=== PATIENT | female | born 1980 | race Caucasian/White ===

== ENCOUNTER → 2023-08-05 00:19 | Outpatient (CLI) | payer BC, SELFPAY ==
--- NOTE | 2023-08-05 08:09 | DI.MAMMO_ITS ---
Exam(s) MAMMO SCREENING EXAM: MAMMO SCREENING CLINICAL HISTORY: Z12.31 Encounter for screening mammogram for malig neop of breast. TECHNIQUE: Bilateral full field digital CC and MLO mammographic images were obtained with 3D tomosyn thesis and utilizing computer aided detection (CAD). COMPARISON: None. This is a baseline mammogram on this 43-year-old. FINDINGS: The fibroglandular tissue pattern is moderately dense, this somewhat decreasing the sensitivity of th e mammogram for finding hidden underlying lesions. The multiple benign-appearing microcalcifications. There are no obvious spiculated masses nor malignant appearing microcalcification groups. There is no significant architectural distortion nor skin thickening-retraction. IMPRESSION: Benign findings. No radiographic evidence of malignancy. BI-RADS Category 2 - Benign Findings Breast Density - Category C - Heterogeneously dense Breast density Category C or D implies that the patient has dense breast tissue. Dense breast tissue can make it harder to find cancer on a mammogram. Dense breast tissue is also associated with an incr eased risk of breast cancer. This information about the result of the mammogram report was provided to the patient to raise their awareness. Use this report when you speak with the patient about their risks for breast cancer, which includes their family history. At that time, you may recommend additional screening tests (Ultrasoun d or MRI) as these tests may add significant information. A negative radiographic report should not delay biopsy if a dominant or clinically suspicious mass is present. Up to ten percent of cancers are not identified on mammography. A negative report may reinforce clinical impression. Adenosis and dense breasts may obscure an underlying neoplasm. False positive reports average 6 to 10%. Patient will receive a letter notifying them of these results.
== END ==
PROVIDERS: PCP Physician Assistant Medical; Visit Provider Physician Assistant Medical
DX: Z12.31 Encounter for screening mammogram for malignant neoplasm of breast (principal); R92.323 Mammographic fibroglandular density, bilateral breasts
CPT/HCPCS: 77063; 77067

== ENCOUNTER 2023-11-25 02:30 | Outpatient (CLI) | payer BC, SELFPAY ==
--- OUTSIDE RECORDS SUMMARY | 2023-11-25 02:50 | XMS_ITS | Data Portability ---
Author Organization [place] - [facility] [place] [address] Care Team Providers Care Production Or Plant Engineer Name Role Phone [facility] BRYANT Dentist Assessment No assessment recorded. Plan of Treatment Reminders Order Date Submit Date Provider Last Modified By Organization Details Last Modified Time Details Appointments Annual Wellness Exam 40 2023 08:00A Linnea GONG Not available Not available Not available Lab influenza virus A + B + SARS-CoV- 2 (COVID19) Ag panel, rapid IA, upper respirato ry specimen 2023 024 [email or web address] [facility], [address] [place] [address], [address], [place], [address], 04/27/2023 12:50:55 HbA1c (hemoglob in A1c), blood 2023 024 [email or web address] [facility] ([facility]), [address] [place] [address] [place], [address], 11/18/2023 11:33:53 lipid panel, serum 2023 024 [email or web address] [facility] ([facility]), [address] [place] [address] [place], [address], 11/18/2023 11:33:53 CMP, serum or plasma 2023 024 [email or web address] [facility] ([facility]), [address] [place] [address] [place], [address], 11/18/2023 11:33:53 Referral None recorded. Procedures None recorded. Surgeries None recorded. Imaging MAMMO, screening , bilateral 2023 024 [facility] (Radiology), [address] [place] [address] [place], [address], 08/12/2023 15:32:42 Medication Orders Ozempic 1 mg/dose (4 mg/3 mL) subcutane ous pen injector 2023 024 [email or web address] [facility], [address], [place], [address], 08/04/2023 10:04:14 Patient TargetsNo targets recorded. Patient InstructionsNo instructions recorded. Reason for Referral None Reported. Results Created Date Observation Date Name Description Value Unit Range Abnormal Flag LastModifiedBy Organization Detail LastModifiedTime 04/27/19 24 04/27/2023 influ kris virus A + B + SARS- CoV-2 (COVI D19) Ag panel , rapid IA, upper respi rator y speci men Influenza A negati ve Not Available [address] [place] [address], [address], 04/27/2023 12:28:25 04/27/19 24 04/27/2023 influ kris virus A + B + SARS- CoV-2 (COVI D19) Ag panel , rapid IA, upper respi rator y speci men Influenza B negati ve Not Available [address] [place] [address], [address], 04/27/2023 12:28:25 04/27/19 24 04/27/2023 influ kris virus A + B + SARS- CoV-2 (COVI D19) Ag panel , rapid IA, upper respi rator y speci men SARS-COV-2 positi ve Not Available [address] [place] [address], [address], 04/27/2023 12:28:25 04/27/19 24 04/27/2023 influ kris virus A + B + SARS- CoV-2 (COVI D19) Ag panel , rapid IA, upper respi rator y speci men Sample sent for PCR confirmation No Not Available [address], [place], [address], 04/27/2023 12:28:25 08/05/19 24 08/05/2023 MAMMO , scree anali, bilat eral Patien t Name: Shilpi Howard Unit #: [id number] Loc: DI Orderi ng Provid er: Ginny reinoso,Sabrina GIBBONS Accoun t #: [id number] Status : REG CLI Primar y Care Provid er: Ginny reinoso,Sabrina GIBBONS Date of Exa m: Sex: F Admiss ion Date: : 1980 Age: 43 Exam(s ) MG MAMMO SCREEN ING EXAM: MG MAMMO SCREEN ING CLINIC AL HISTOR Y: Z12.[address] for screen ing mammog lalita for malig neop of breast . TECHNI QUE: Bilate ral full field digita l CC and MLO mammog raphic images were obtain ed with 3D tomosy nthesi s and utiliz ing comput er aided detect ion (CAD). COMPAR DIOMEDES: None. This is a baseli ne mammog lalita on this 43-yea r-old. FINDIN GS: The fibrog landul ar tissue patter n is modera tely dense, this somewh at decrea sing the sensit ivity of the mammog lalita for findin g hidden underl cristobal lesion s. The multip le benign -appea ring microc alcifi cation s. There are no obviou s spicul ated masses nor malign ant appear ing microc alcifi cation groups . There is no signif icant harris ectura l distor tion nor skin thicke anali-r etract ion. IMPRES LACIE: Benign findin gs. No radiog raphic eviden ce of malign earnestine. BI-RAD S Catego ry 2 - Benign Findin gs Breast Densit y - Catego ry C - Hetero geneou sly dense Breast densit y Catego ry C or D implie s that the patien t has dense breast tissue . Dense breast tissue can make it harder to find cancer on a mammog lalita. Dense breast tissue is also associ ated with an increa sed risk of breast cancer . This inform ation about the result of the mammog lalita report was provid ed to the patien t to raise their awaren ess. Use this report when you speak with the patien t about their risks for breast cancer , which includ es their family histor y. At that time, you may recomm end additi onal screen ing tests (Ultra sound or MRI) as these tests may add signif icant inform ation. A negati ve radiog raphic report should not delay biopsy if a domina nt or clinic ally suspic ious mass is presen t. Up to ten percen t of cancer s are not identi fied on mammog man. A negati ve report may reinfo rce clinic al impres lacie. Adenos is and dense breast s may obscur e an underl rcistobal neopla sm. False positi ve report s averag e 6 to 10%. Patien t will receiv e a letter notify ing them of these result sEsdras Manzanares d By: Ginny reinoso,Sabrina GIBBONS CC: ------ ------ ------ ------ ------ ------ ------ ------ ------ ------ ------ ------ - Dictat ed By: Jas Paige M.D. 820 Transc ribed By: Grecia ALCAZAR,Jacklyn lopez 820 This is privil eged, confid ential inform ation intend ed only for the provid er named. Any use or distri bution by any person other than this provid er is strict ly prohib ited. If you receiv e this report in error, please notify us immedlucy peña at and return the origin al report to us at the addres s above. Thank- you. [facility] [address], [place], [address] 08/12/2023 15:32:42 10/29/19 24 08/05/2023 MAMMO , lori briones, michael Wing t Name: Shilpi Howard Unit #: [id number] Loc: DI Orderi ng Provid er: Sabrina Gross rn Accoun t #: [id number] Status : REG CLI Primar y Care Provid er: Sabrina Gross rn Date of Exa m: Sex: F Admiss ion Date: : 1980 Age: 43 Addend a: Exam(s ) MG MAMMO SCREEN ING ADDEND UM: The images were review ed. I agree with the findin gs and impres lacie below. Dictat ed By: Za Gaspar [id number] Za Gaspar 1512 Transc ribed By: Jacques Tate [id number] Exam(s ) MG MAMMO SCREEN ING EXAM: MAMMO SCREEN ING CLINIC AL HISTOR Y: Z12.[address] for screen ing mammog lalita for malig neop of breast . TECHNI QUE: Bilate ral full field digita l CC and MLO mammog raphic images were obtain ed with 3D tomosy nthesi s and utiliz ing comput er aided detect ion (CAD). COMPAR DIOMEDES: None. This is a baseli ne mammog lalita on this 43-yea r-old. FINDIN GS: The fibrog landul ar tissue patter n is modera tely dense, this somewh at decrea sing the sensit ivity of the mammog lalita for findin g hidden underl cristobal lesion s. The multip le benign -appea ring microc alcifi cation s. There are no obviou s spicul ated masses nor malign ant appear ing microc alcifi cation groups . There is no signif icant harris ectura l distor tion nor skin thicke anali-r etract ion. IMPRES LACIE: Benign findin gs. No radiog raphic eviden ce of malign earnestine. BI-RAD S Catego ry 2 - Benign Findin gs Breast Densit y - Catego ry C - Hetero geneou sly dense Breast densit y Catego ry C or D implie s that the patien t has dense breast tissue . Dense breast tissue can make it harder to find cancer on a mammog lalita. Dense breast tissue is also associ ated with an increa sed risk of breast cancer . This inform ation about the result of the mammog lalita report was provid ed to the patien t to raise their awaren ess. Use this report when you speak with the patien t about their risks for breast cancer , which includ es their family histor y. At that time, you may recomm end additi onal screen ing tests (Ultra sound or MRI) as these tests may add signif icant inform ation. A negati ve radiog raphic report should not delay biopsy if a domina nt or clinic ally suspic ious mass is presen t. Up to ten percen t of cancer s are not identi fied on mammog man. A negati ve report may reinfo rce clinic al impres lacie. Adenos is and dense breast s may obscur e an underl cristobal neopla sm. False positi ve report s averag e 6 to 10%. Patien t will receiv e a letter notify ing them of these result s. Ordere d By: Ginny reinoso,Sabrina GIBBONS CC: ------ ------ ------ ------ ------ ------ ------ ------ ------ ------ ------ ------ - Dictat ed By: Jas Paige M.D. 820 Transc ribed By: Grecia ALCAZAR,Jacklyn lopez 820 This is privil eged, confid ential inform ation intend ed only for the provid er named. Any use or distri bution by any person other than this provid er is strict ly prohib ited. If you receiv e this report in error, please notify us immedlucy peña at [phone] and return the origin al report to us at the addres s above. Thank- you. [email or web address] [facility] (Radiology) [address] [facility] [address] [place], [address], 10/31/2023 08:02:12 Result Notes None recorded. Problems Name Status Onset Date Resolution Date Notes Provider Name and Address Organization Details Recorded Time Severe obesity Active 200307/09/2022 - Comments only - Fanta Gong PA-C - BMI 38. Patient will continue weight loss efforts (currently following dirty [employer]ET[employer] plan). She will call monthly to report self collected weights to ensure appropriate documentation to advance re-applicatio n for panniculectom y surgery ?this fall. Problem Code: E66.01; Problem Code Type: ICD-10; Not Available [facility] 3 05:57:51 Acute pharyngitis Completed 201401/28/2015 Problem Code: J02.9; Problem Code Type: ICD-10; Not Available [facility] 3 05:57:51 Foot pain Completed 201708/16/2017 08/02/2017 - Comments only - Fanta Gong PA-C - ?atypical presentation of plantar fasciitis. Given no signficant relief with trialed NSAIDs to present, Shilpi agrees to begin on PREDNSIONE as directed on moderately dosed 12d taper. OK to continue to supplement with OTC TYLENOL +/- CBD OIL as indicated. Additionally, while awaiting scheduled podiatry evaluation (Maria Antonia; 08/15/17), patient agrees to consider OTC HEEL CUPS, foot stretching prior to out of bed in [facility], and post-activity icing (frozen water bottle). F/U PRN> Problem Code: M79.673; Problem Code Type: ICD-10; Not Available [facility] 3 05:57:51 Contraception care management Active 202207/09/2022 - Comments only - Fanta Gong PA-C - Discussed [employer]EL[employer] referral for tubal ligation, however, upon being advised that she could expect return of menses with removal of IUD, she opts to continue with MIRENA as is for the time being. Problem Code: Z30.9; Problem Code Type: ICD-10; Not Available [facility] 3 05:57:51 Eustachian tube disorder Active 2022 Problem Code: H69.80; Problem Code Type: ICD-10; Not Available [facility] 3 05:57:52 Otitis externa of bilateral ears Completed 202211/17/2022 Problem Code: H60.93; Problem Code Type: ICD-10; Not Available [facility] 3 05:57:52 Acute upper respiratory infection Completed 201812/12/2018 Problem Code: J06.9; Problem Code Type: ICD-10; Not Available [facility] 3 05:57:52 Dyspnea Completed 201812/12/2018 Problem Code: R06.00; Problem Code Type: ICD-10; Not Available [facility] 3 05:57:52 Acute stress disorder Completed 201412/12/2018 Problem Code: F43.0; Problem Code Type: ICD-10; Not Available [facility] 3 05:57:52 Streptococcal sore throat Completed 201412/12/2018 Problem Code: J02.0; Problem Code Type: ICD-10; Not Available [facility] 3 05:57:52 Morbid obesity Completed 200301/19/2023 12/12/2018 - Comments only - Fanta Gong PA-C - BMI 44. After reviewing various treatment options, we have opted to trial CONTRAVE 8-90mg to titrate to 2 tabs BID over the next few weeks. Additionally, Shilpi agrees to do some indepedent research re: intermittent fasting plans to determine if she might be able to make that work for her. Not Available [facility] 3 05:57:52 Problem Notes None recorded. Procedures Surgical History Date Name Laterality Status Provider Name and Address Organization Details Recorded Time 09/05/19 reduction plasty of bilateral breasts completed DEBBI Narvaez, [place] - [facility] 09/11/2023 14:15:17 06/02/19 24 panniculectomy completed DEBBI DANIELS [place] - [facility] 06/13/2023 08:57:04 Imaging Results Imaging Date Name Status LastModified by Organiz ation Details LastModified Time 08/05/2023 MAMMO, screening, bilateral completed [email or web address] [place] [id number] [facility] [place], [address] 08/12/2023 15:32:42 08/05/2023 MAMMO, screening, bilateral completed [email or web address] [facility] (Radiology) [address] [place] [address] [place], [address], 10/31/2023 08:02:12 Procedure Notes None recorded. Medical Equipment None Reported. Allergies Allergen ID Allergen Name Allergen Category Reaction Reaction Severity Criticality Documentation Date Start Date Code Code System Note Provider Name and Address Organization Details Recorded Time codeine sulfate medicatio n hives mild Not available 03/04/20232003 59328 RxNorm HIVES Not Available [facility] 3 16:07:46 23526 Demerol medicatio n rash moderate Not available 03/04/20232013 81978 1 RxNorm hives Aller gyRea ction : 'Rash , hives '; Aller gyCod e: '0005 [id number] 63'; Aller gyNam e: 'SARAH ROL'; Aller gyCon ceptT ype: 'NDC' ; Not Available [facility] 3 16:07:46 50951 latex environme nt,medica tion rash moderate low 04/27/2023 91784 91 RxNorm KARANDEBBI AVILA [place] - [facility] 4 12:10:10 Medications Name Sig Start Date Stop Date Status Note LastModified by Organization Details LastModified Time Prescriptio n - Clarificati on active Not Available Not Available Not Available Miralax 17 gram/dose oral powder 1 TBSP as needed 06/20 completed Not Available Not Available Not Available prednisone 10 mg tablet 4 tabs x 3 days, 3 tabs x 3 days, 2 tabs x 3 days and 1 tab x 3 days 07/21 completed Not Available Not Available Not Available orlistat 120 mg capsule 1 tid 04/28 completed Not Available Not Available Not Available ondansetron HCl 4 mg tablet one po q8hr prn nausea 06/20 completed Not Available Not Available Not Available prednisone 20 mg tablet Take three tabs PO x 2 days, two tabs PO x 2 days, 1 tab PO x 3 days, then stop. 07/25 completed Not Available Not Available Not Available Pyridium 200 mg tablet 1 TAB three times daily 04/22 completed Not Available Not Available Not Available Diflucan 150 mg tablet Take 1 by mouth now 01/15 completed Not Available Not Available Not Available penicillin V potassium 500 mg tablet Take 1 by mouth twice daily 01/21 completed Not Available Not Available Not Available meclizine 12.5 mg tablet TAKE ONE TABLET BY MOUTH THREE TIMES A DAY NEEDED FOR DIZZINESS 07/21 completed Not Available Not Available Not Available amoxicillin 500 mg tablet 1 CAP TID 05/08 completed Not Available Not Available Not Available ondansetron 4 mg tablet 4 mg q 8 hr 2013 active Not Available Not Available Not Avai lable nystatin 100,000 unit/gram topical cream APPLY TO ABDOMINAL SKIN FOLDS TWO TIMES A DAY NEEDED FOR INTERTRIG O. STOP WHEN RASH RESOLVES. SEE MD IF RASH DOESN'T IMPROVE WITH TREATME 07/21 completed Not Available Not Available Not Available indomethaci n 50 mg capsule 1 TAB BY MOUTH TWICE DAILY NEEDED FOR ANKLE PAIN (HOLD NAPROXEN) 08/02 completed Not Available Not Available Not Available amoxicillin 500 mg-potassiu m clavulanate 125 mg tablet TAKE ONE TABLET BY MOUTH EVERY 12 HOURS FOR 10 DAYS 07/21 completed Not Available Not Available Not Available oxycodone 5 mg tablet 07/21 completed Not Available Not Available Not Available Augmentin 875 mg tablet 1 TAB twice daily 07/06 completed Not Available Not Available Not Available Bactrim DS 800 mg-160 mg tablet Take 1 tab by mouth twice daily 2015 completed Not Available Not Available Not Available Ciprodex 0.3 %-0.1 % ear drops,suspe nsion Instill 4 drop into both ears twice a day 11/22 completed Not Available Not Available Not Available intrauterin e device (IUD) active Not Available Not Available Not Available Bactrim DS 1TAB twice daily 10/22 completed Not Available Not Available Not Available omeprazole 20 mg tablet,eugene yed release Take 1 by mouth daily 06/20 completed Not Available Not Available Not Available Easy Comfort Pen [place] 31 gauge x 5/16 Use 1 needle subcutane ously as directed WITH OZEMPIC 02/16 completed Not Available Not Available Not Available Nasacort 55 mcg nasal spray aerosol Haskins 2 spray into both nostrils once a day 02/16 completed Not Available Not Available Not Available Contrave 8 mg-90 mg tablet,exte nded release 1 tab daily in AM x 1 week then 1 tab twice daily x 1 week then 2 tabs daily in AM and 1 tab QHS x 1 week then 2 tabs by mouth twice daily 07/09 completed Not Available Not Available Not Available Ozempic 1 mg/dose (2 mg/1.5 mL) subcutaneou s pen injector inject 1 mg weekly x 4 weeks then increase to 2 mg q week if tolerated 08/03 completed Not Available Not Available Not Available Ozempic 0.25 mg or 0.5 mg (2 mg/1.5 mL) subcutaneou s pen injector INJECT 0.5mg SQ weekly x 4 weeks then increase to 1mg SQ weekly 07/21 completed Not Available Not Available Not Available Ozempic 1 mg/dose (4 mg/3 mL) subcutaneou s pen injector INJECT 1MG ONCE A WEEK x 1 MONTH THEN INCREASE TO 2MG ONCE WEEKLY 08/03 completed Not Available Not Available Not Available Ozempic 2 mg/dose (8 mg/3 mL) subcutaneou s pen injector Inject 2 mg every week by subcutane ous route as directed. active Not Available Not Available No t Available Mounjaro 7.5 mg/0.5 mL subcutaneou s pen injector Inject 7.5 mg every week by subcutane ous route. 06/21 completed Not Available Not Available Not Available Mounjaro 5 mg/0.5 mL subcutaneou s pen injector INJECT 5MG UNDER THE SKIN EVERY WEEK 06/21 completed Not Available Not Available Not Available Ozempic 0.25 mg or 0.5 mg (2 mg/3 mL) subcutaneou s pen injector INJECT 0.5MG UNDER THE SKIN WEEKLY FOR 4 WEEKS THEN INCREASE TO 1MG UNDER THE SKIN WEEKLY 08/03 completed Not Available Not Available Not Available Vitals Date Recorded Body height Body temperature Oxygen saturation Oxygen saturation in Arterial blood by Pulse oximetry Heart rate Systolic blood pressure Diastolic blood pressure Provider Name and Address Organization Details Last Updated DateTime 4 174.498 cm 97.8 [degF] 99 % 99 % 80 /min 102 mm[Hg] 66 mm[Hg] JESSICA Sherwood MA [facility] 4 12:09:39 Date Recorded Body height Oxygen saturation Oxygen saturation in Arterial blood by Pulse oximetry Heart rate Body mass index (BMI) Body weight Systolic blood pressure Diastolic blood pressure Provider Name and Address Organization Details Last Updated DateTime 4 174.498 cm 98 % 98 % 75 /min 30.1 kg/m2 09060.6 6 g 104 mm[Hg] 60 mm[Hg] TRISTON VELAZQUEZ MA [facility] 4 08:41:08 Social History Question Answer Notes LastModified by Organizat ion Details LastModified Time Tobacco Smoking Status Never Smoker TRISTON VELAZQUEZ MA [facility] 07/22/2023 08:38:39 What Was The Date Of Your Most Recent Tobacco Screening? 07/22/2023 Information not available 07/22/2023 Has Tobacco Cessation Counseling Been Provided? No Information not available 07/22/2023 Do You Or Have You Ever Used Any Other Forms Of Tobacco Or Nicotine? No Information not available 07/22/2023 Sex: Female Functional Status None recorded. Mental Status None recorded. Family History Relationship Description Onset Age of this Age Resolved Age Notes Notes:*Problem: José Manuel Bueno icole: [id number] UPDATED 05/23/13 MOTHER - Alive - DM2 , fluid around heart , HTN FATHER - at 50y/o - CAD with fatal OK, HTN, HPL, ?DM2 SISTERS x 2 - Obesity x 2 CHILDREN x 3 - L&W without ongoing medical issues Patient reports h/o breast CA in maternal great aunts x4, h/o hypothryoidism in paternal cousin, CAD with OK in PGM and PGF. She denies known family h/o colon CA or ovarian CA Medical History No medical history recorded. Gynecological HistoryNo gynecological history recorded. Obstetrics History GPAL:G 0 P 0 0 0 0 Immunizations Vaccine Type Date Status Provider Name and Address Organization Details Recorded Time MMR 09/10/2008 completed Not Available [facility] 06:06:29 Tdap 11/05/2005 completed Not Available [facility] 06:06:29 COVID-19, mRNA, LNP-S, PF, 100 mcg/0.5mL dose or 50 mcg/0.25mL dose 05/14/2020 completed Not Available [facility] 03/04/20 06:06:29 COVID-19, mRNA, LNP-S, PF, 100 mcg/0.5mL dose or 50 mcg/0.25mL dose 06/11/2020 completed Not Available [facility] 03/04/20 06:06:30 Hep B, unspecified formulation 09/10/2008 completed Not Available [facility] 03/04/2023 06:06:30 Hep B, unspecified formulation 01/25/2012 completed Not Available [facility] 03/04/2023 06:06:30 influenza, unspecified formulation 02/10/2010 completed Not Available [facility] 03/04/2023 06:06:30 Past Encounters Encounter ID Performer Location Encounter Start Date Encounter Closed Date Diagnosis/Indication Diagnosis SNOMED-CT Code [id number] NONA WINSTON PA-C [facility] [address] [address] 04/27/2023 11:35:59 04/27/2023 12:36:33 COVID-19 [id number] FANTA GONG PA-C [facility] [address] [place] [address] 07/22/2023 08:11:28 07/22/2023 10:06:33 Screening mammography 98685362 Obesity 131379786 Health Concerns Section Related Observation LastModified by Organization Detai ls LastModified Time None Recorded Concern Status LastModified by Organization Details LastModified Time None Recorded Advance Directives Directive None Recorded Payers Encounter Date Sequence Insurance Name Policy Number Policy Davies Covered Member ID Davies Member ID Guarantor Name 04/27/2023 1 [place] [facility] [id number] Shilpi L Lee [id number] Shilpi L Lee 07/22/2023 1 [place] [facility] [id number] Shilpi L Lee [id number] Shilpi L Lee Notes Date Note Type Note Provider Name and Address Organization Details Recorded Time 04/27/2023 text/html HPI Notes: edu mclaughlin is a 42-year-old female presenting for question of sinus infection. Started feeling unwell 5 days ago. Left-sided sinus pain and pressure. Associated congestion. No fevers or chills. No coughing wheezing or shortness of breath. No sore throat or difficulty swallowing. Has done 2 home COVID test which have been negative most recent was yesterday. Has tried [id number] cold medication and sinus decongestant with limited relief. [address], [place], [address], [facility], [facility]. 04/27/2023 12:51:10 07/22/2023 text/html HPI Notes: 43y/o female presenting for f/u obesity. [address], [place], [address], [facility]. 07/22/2023 09:10:10 OBGyn Episode No OBEpisode recorded.
[2023-11-25 12:43] LABS: Hemoglobin A1C 4.6 % (<5.7)
[2023-11-25 12:55] LABS: ALT 21 U/L (14-59); AST 12 U/L (15-37); Albumin 3.8 g/dL (3.4-5.0); Alkaline Phosphatase 62 U/L (46-116); Anion Gap 5.2 mmol/L (3-11); BUN 8 mg/dL (7-18); Bilirubin, Total 0.52 mg/dL (0.2-1.0); CO2 28.8 mmol/L (21.0-32.0); CREATININE 0.7 mg/dL (0.55-1.02); Calcium 8.8 mg/dL (8.5-10.1); Calculated LDL 48 mg/dL (<100); Chloride 106 mmol/L (98-107); Cholesterol 134 mg/dL (<200); Estimated GFR 111.36 (mL/min/1.73m2); Glucose 83 mg/dL (74-106); HDL Cholesterol 81 mg/dL (40-60); Potassium 3.8 mmol/L (3.5-5.1); Sodium 140 mmol/L (136-145); Total Protein 7.1 g/dL (6.4-8.2); Triglyceride 26 mg/dL (<150)
== END 2023-11-25 02:31 | disposition home or self-care (01) ==
LOC: LOS 02:30
PROVIDERS: PCP Physician Assistant Medical; Visit Provider Physician Assistant Medical
DX: E66.9 Obesity, unspecified (principal)
CPT/HCPCS: 36415; 80053; 80061; 83036

== ENCOUNTER 2024-06-04 13:34 | Outpatient (REF) | payer BC, SELFPAY ==
--- NOTE | 2024-06-04 08:30 | PAPFT_PTH ---
PATIENT: Shilpi Howard [facility][id number] AGE/SX: 44/F ROOM: RE06/04/[address]: Fanta Mcknight : 1980 BED: DIS: 06/04/2024 SPEC #: [id number] RECD: 06/04/24 18:01 STATUS: JOVANY MARTINEZ #: [id number] LUZ MARIA: 06/04/24 08:[address]: Fanta Mcknight DEPT: [facility] Cytology RECD BY: Tamia Elkins Tissues: 1 - CX/ENDOCX FOR PAP SMEARS Procedures: PAP THIN PREP/[facility] Screening HPV DNA PROBE Comments: [id number] (HPV 16 & 18/45)
== END 2024-06-04 13:35 | disposition home or self-care (01) ==
LOC: NCHCN 13:34
PROVIDERS: PCP Physician Assistant Medical; Visit Provider Physician Assistant Medical
DX: Z01.419 Encounter for gynecological examination (general) (routine) without abnormal findings (principal)
CPT/HCPCS: 88142; 87624

== ENCOUNTER 2024-06-14 01:13 | Outpatient (CLI) | payer BC, SELFPAY ==
[2024-06-14 12:33] LABS: Abs Immature Grans 0.01 10^3/uL (0.0-0.06); Absolute Basophil Count 0.03 10^3/uL (0.0-0.2); Absolute Eosinophil Count 0.11 10^3/uL (0.0-0.7); Absolute Lymphocyte Count 1.26 10^3/uL (1.2-3.4); Absolute Neutrophil Count 1.58 10^3/uL (1.2-6.7); Basophils % 0.9 %; Eosinophils % 3.2 %; HCT 38.8 % (36.0-46.0); HGB 13.2 g/dL (11.2-15.7); Immature Grans % 0.3 %; Lymphocytes % 37.2 %; MCH 30.7 pg (27.0-33.0); MCV 90 fL (80-95); MPV 10.5 fL (8.0-11.0); Monocytes % 11.8 %; Neutrophils % 46.6 %; Platelet Count 272 10^3/uL (130-400); RDW 13.1 % (11.7-14.6); RDW-SD 42.9 fL; WBC 3.39 10^3/uL (4.4-10.8)
[2024-06-14 13:40] LABS: Iron 92 ug/dL (50-170); Total Iron Binding Capacity 237 ug/dL (250-450); Transferrin Sat 39 % (15-50)
[2024-06-14 14:35] LABS: ALT 25 U/L (14-59); AST 11 U/L (15-37); Albumin 3.7 g/dL (3.4-5.0); Alkaline Phosphatase 62 U/L (46-116); Anion Gap 6.6 mmol/L (3-11); BUN 13 mg/dL (7-18); Bilirubin, Total 0.47 mg/dL (0.2-1.0); CO2 27.4 mmol/L (21.0-32.0); CREATININE 0.6 mg/dL (0.55-1.02); Calcium 8.9 mg/dL (8.5-10.1); Chloride 107 mmol/L (98-107); Cholesterol 135 mg/dL (<200); Estimated GFR 114.86 (mL/min/1.73m2); Ferritin 88 ng/mL (8-252); Folate > 20.0 ng/mL (8.6-20.0); Glucose 72 mg/dL (74-106); HDL Cholesterol 81 mg/dL (40-60); Potassium 3.8 mmol/L (3.5-5.1); Sodium 141 mmol/L (136-145); Triglyceride <25 mg/dL (<150); Vitamin B12 640 pg/mL (193-986)
[2024-06-14 14:45] LABS: Hemoglobin A1C 4.6 % (<5.7)
[2024-06-14 15:53] LABS: Vitamin D 25 Total 34.1 ng/mL (30-100)
[2024-06-14 16:56] LABS: LDL CHOLESTEROL 54 mg/dL (<100)
[2024-06-14 18:22] LABS: Parathyroid Hormone,Intact 61.7 pg/mL (19.0-88.0)
[2024-06-19 08:30] LABS: Thiamine (Vitamin B1), WB 144 nmol/L (70-180)
== END 2024-06-14 01:14 | disposition home or self-care (01) ==
LOC: LOS 01:13
PROVIDERS: PCP Physician Assistant Medical; Visit Provider Physician Assistant Medical
DX: E66.9 Obesity, unspecified (principal)
CPT/HCPCS: 36415; 80053; 80061; 82306; 83721; 82607; 82728; 82746; 83036; 83540; 83550; 83970; 84425; 85025